=== PATIENT | male | born 1945 | race Caucasian/White ===

== ENCOUNTER 2020-12-06 15:56 | Emergency (ER) | payer OTHER ==
[2020-12-06] MEDS ORDERED: ACETAMINOPHEN 500 MG TAB ONE (16:35)
[2020-12-06 17:45] LABS: SARS-COV-2 RT PCR POSITIVE (NEGATIVE)
--- NOTE | 2020-12-06 18:29 | RAD REPORT ---
EXAM DESCRIPTION: Jennifer Single View12/06/2020 6:17 pm CLINICAL HISTORY: Fever COMPARISON: 2012 FINDINGS: The lungs appear clear of acute infiltrate. The heart is normal size Small curvilinear radiopaque density overlies lower left hemithorax unchanged from the prior exam
--- NOTE | 2020-12-06 18:41 | EDPHYS ---
Physician Documentation [facility] Name: David Patino Age: 75 yrs Sex: Male : 1945 Arrival Date: 12/06/2020 Time: 16:00 Bed 14 Private MD: ED Physician Makayla Salmeron HPI: 12/06 18:00 This 75 yrs old Male presents to ER via Ambulatory with complaints of Cough. pm1 18:00 The patient or guardian reports cough, with no sputum. Onset: The symptoms/episode pm1 began/occurred 2 day(s) ago. Severity of symptoms: in the emergency department the symptoms are unchanged. Modifying factors: The symptoms are alleviated by nothing, the symptoms are aggravated by nothing. Associated signs and symptoms: Pertinent positives: fever, rhinorrhea, Pertinent negatives: chest pain, Shortness of breath. The patient has not experienced similar symptoms in the past. The patient has not recently seen a physician. Patient with exposure to coworker in his car who had a cough and later informed him he was positive for Covid. Historical: - Allergies: 16:07 PENICILLINS; ss 16:07 Sulfa (Sulfonamide Antibiotics); ss - Home Meds: 16:07 atorvastatin oral [Active]; omeprazole 20 mg Oral cpDR 1 cap once daily [Active]; ss lisinopril 20 mg Oral tab 1 tab once daily [Active]; amlodipine 2.5 mg tab 1 tab once daily [Active]; aspirin 81 mg Oral TbEC 1 tab once daily [Active]; - PMHx: 16:07 Hypertensive disorder; ss 16:10 colon CA; kidney stones; ss - PSHx: 16:10 Cholecystectomy; Colectomy; ss - Immunization history:: Client reports having NOT received the Covid vaccine. - Social history:: Smoking status: Patient denies any tobacco usage or history of. ROS: 18:00 ENT: Negative for injury, pain, and discharge, Cardiovascular: Negative for chest pain, pm1 palpitations, and edema. 18:00 Abdomen/GI: Negative for abdominal pain, nausea, vomiting, diarrhea, and constipation, Back: Negative for injury and pain, MS/Extremity: Negative for injury and deformity, Skin: Negative for injury, rash, and discoloration. 18:00 Neuro: Negative for headache, weakness, numbness, tingling, and seizure. 18:00 Constitutional: Positive for fever, Negative for poor PO intake. 18:00 Respiratory: Positive for cough, Negative for shortness of breath, sputum production. Exam: 18:00 Constitutional: This is a well developed, well nourished patient who is awake, alert, pm1 and in no acute distress. Head/Face: Normocephalic, atraumatic. 18:00 Skin: Warm, dry with normal turgor. Normal color with no rashes, no lesions, and no evidence of cellulitis. MS/ Extremity: Pulses equal, no cyanosis. Neurovascular intact. Full, normal range of motion. 18:00 Cardiovascular: Exam negative for acute changes, Rate: normal, Rhythm: regular, Pulses: no pulse deficits are appreciated, Heart sounds: normal, normal S1and S2. 18:00 Respiratory: Exam negative for acute changes, respiratory distress, shortness of breath, Breath sounds: are clear throughout. 18:00 Neuro: Exam negative for acute changes, Orientation: is normal, Mentation: is normal, Motor: is normal, moves all fours. Vital Signs: 16:06 BP 119 / 80; Pulse 69; Resp 16; Temp 102.6(O); Pulse Ox 98% on R/A; Weight 88.9 kg; ss Height 5 ft. 9 in. (175.26 cm); Pain 0/10; 17:40 Temp 99.3(O); ss 17:45 BP 123 / 74; Pulse 60; Resp 16; Temp 99.6(O); Pulse Ox 97% on R/A; vg1 18:45 BP 166 / 67; Pulse 62; Resp 16; Pulse Ox 98% on R/A; vg1 16:06 Body Mass Index 28.94 (88.90 kg, 175.26 cm) ss MDM: 18:00 Patient medically screened. pm1 18:39 Data reviewed: vital signs. Data interpreted: Pulse oximetry: on room air is 97 %. pm1 Interpretation: normal. Counseling: I had a detailed discussion with the patient and/or guardian regarding: the historical points, exam findings, and any diagnostic results supporting the discharge/admit diagnosis, lab results, radiology results, the need for outpatient follow up, to return to the emergency department if symptoms worsen or persist or if there are any questions or concerns that arise at home, Need for self quarantine. 12/06 16:10 Order name: XRAY Chest (1 view); Complete Time: 18:37 ss 12/06 17:45 Order name: COVID-19/FLU A+B; Complete Time: 17:47 EDMS 12/06 17:48 Order name: Droplet/Contact Precautions; Complete Time: 17:54 pm1 Administered Medications: 16:16 Drug: Tylenol 1000 mg Route: PO; ss 17:54 Follow up: Response: Temperature is decreased vg1 Disposition Summary: 12/06/20 18:40 Discharge Ordered Location: Home pm1 Problem: new pm1 Symptoms: have improved pm1 Condition: Stable pm1 Diagnosis - Coronavirus infection, unspecified pm1 Followup: pm1 - With: Emergency Department - When: As needed - Reason: Worsening of condition Followup: pm1 - With: Private Physician - When: 2 - 3 days - Reason: Recheck today's complaints, Continuance of care, Re-evaluation by your physician Discharge Instructions: - Discharge Summary Sheet pm1 - COVID-19 pm1 Forms: - Medication Reconciliation Form pm1 - Thank You Letter pm1 - Antibiotic Education pm1 - Prescription Opioid Use pm1 Addendum: 12/07/2020 20:36 Co-signature as Attending Physician, Makayla Salmeron MD. m a2 Signatures: Dispatcher [employer] EDJinny Grant RN RN ss Yuri Becerra, CLOUD AUTOMATION TESTER CLOUD AUTOMATION TESTER pm1 Makayla Salmeron MD MD ma2 Nedra Alvarado RN vg1 Corrections: (The following items were deleted from the chart) 12/06 16:35 16:10 CORONAVIRUS+MR.LAB.BRZ ordered. EDMS EDMS 16:56 16:10 Influenza Screen (A \T\ B)+BA.LAB.BRZ ordered. EDMS EDMS
--- NOTE | 2020-12-06 18:41 | ER ---
Nurse's Notes [facility] Name: David Patino Age: 75 yrs Sex: Male : 1945 Arrival Date: 12/06/2020 Time: 16:00 Bed 14 Private MD: Diagnosis: Coronavirus infection, unspecified Presentation: 12/06 16:06 Chief complaint: Patient states: fever and cough that began 2 days ago. TMAX 102.7. Pt ss reports an exposure to covid. Coronavirus screen: Client presents with at least one sign or symptom that may indicate coronavirus-19. Standard/surgical mask placed on the client. Provider contacted for isolation considerations. Ebola Screen: Patient denies exposure to infectious person. Patient denies travel to an Ebola-affected area in the 21 days before illness onset. Initial Sepsis Screen: Does the patient meet any 2 criteria? No. Patient's initial sepsis screen is negative. Does the patient have a suspected source of infection? No. Patient's initial sepsis screen is negative. Risk Assessment: Do you want to hurt yourself or someone else? Patient reports no desire to harm self or others. Onset of symptoms was December 05, 2020. 16:06 Method Of Arrival: Ambulatory ss 16:06 Acuity: ROBINSON 3 ss Historical: - Allergies: 16:07 PENICILLINS; ss 16:07 Sulfa (Sulfonamide Antibiotics); ss - Home Meds: 16:07 atorvastatin oral [Active]; omeprazole 20 mg Oral cpDR 1 cap once daily [Active]; ss lisinopril 20 mg Oral tab 1 tab once daily [Active]; amlodipine 2.5 mg tab 1 tab once daily [Active]; aspirin 81 mg Oral TbEC 1 tab once daily [Active]; - PMHx: 16:07 Hypertensive disorder; ss 16:10 colon CA; kidney stones; ss - PSHx: 16:10 Cholecystectomy; Colectomy; ss - Immunization history:: Client reports having NOT received the Covid vaccine. - Social history:: Smoking status: Patient denies any tobacco usage or history of. Screenin:56 Abuse screen: Denies threats or abuse. Nutritional screening: No deficits noted. vg1 Tuberculosis screening: No symptoms or risk factors identified. Fall Risk No fall in past 12 months (0 pts). No secondary diagnosis (0 pts). No IV (0 pts). Ambulatory Aid- None/Bed Rest/Nurse Assist (0 pts). Gait- Normal/Bed Rest/Wheelchair (0 pts) Mental Status- Oriented to own ability (0 pts). Total Walton Fall Scale indicates No Risk (0-24 pts). Assessment: 17:45 General: Appears in no apparent distress. comfortable, Behavior is calm, cooperative. vg1 Pain: Denies pain. Neuro: Level of Consciousness is awake, alert, obeys commands, Oriented to person, place, time, situation. Cardiovascular: Patient's skin is warm and dry. Respiratory: Reports cough that is Airway is patent Respiratory effort is even, unlabored, Breath sounds are clear bilaterally. Denies shortness of breath. GI: No signs and/or symptoms were reported involving the gastrointestinal system. : No signs and/or symptoms were reported regarding the genitourinary system. EENT: No signs and/or symptoms were reported regarding the EENT system. Derm: Skin is intact, is healthy with good turgor. Musculoskeletal: Circulation, motion, and sensation intact. Vital Signs: 16:06 BP 119 / 80; Pulse 69; Resp 16; Temp 102.6(O); Pulse Ox 98% on R/A; Weight 88.9 kg; ss Height 5 ft. 9 in. (175.26 cm); Pain 0/10; 17:40 Temp 99.3(O); ss 17:45 BP 123 / 74; Pulse 60; Resp 16; Temp 99.6(O); Pulse Ox 97% on R/A; vg1 18:45 BP 166 / 67; Pulse 62; Resp 16; Pulse Ox 98% on R/A; vg1 16:06 Body Mass Index 28.94 (88.90 kg, 175.26 cm) ED Course: 16:00 Patient arrived in ED. ds1 16:07 Triage completed. ss 16:07 Arm band placed on right wrist. ss 17:47 Yuri Becerra NP is PHCP. pm1 17:47 Makayla Salmeron MD is Attending Physician. pm1 17:53 Nedra Alvarado, RN is Primary Nurse. vg1 17:57 Patient has correct armband on for positive identification. Bed in low position. Call vg1 light in reach. Side rails up X 1. 18:18 XRAY Chest (1 view) In Process Unspecified. EDMS 18:56 No provider procedures requiring assistance completed. Patient did not have IV access vg1 during this emergency room visit. Administered Medications: 16:16 Drug: Tylenol 1000 mg Route: PO; ss 17:54 Follow up: Response: Temperature is decreased vg1 Outcome: 18:40 Discharge ordered by MD. pm1 18:55 Discharged to home ambulatory. vg1 18:55 Condition: stable 18:55 Discharge instructions given to patient, Instructed on discharge instructions, follow up and referral plans. Demonstrated understanding of instructions, follow-up care. 18:56 Patient left the ED. vg1 Signatures: Dispatcher [employer] EDPA Annette Nieto ds1 Jinny Billy, YULIANA RN Yuri Kraus, SREEKANTH FIBER WORKER pm1 Nedra Alvarado, YULIANA RN vg1
[2020-12-06 19:05] VITALS: TEMP 99.6
[2020-12-06 19:07] VITALS: BP 166/67; O2SAT 98
== END 2020-12-06 18:56 | disposition home or self-care (01) ==
LOC: ER 15:56
DX: U07.1 COVID-19 (principal); I10 Essential (primary) hypertension; Z79.82 Long term (current) use of aspirin; Z88.0 Allergy status to penicillin; Z88.2 Allergy status to sulfonamides
CPT/HCPCS: 0240U; 71045; 99283

== ENCOUNTER 2020-12-15 08:44 | Inpatient (IN) | payer OTHER ==
[2020-12-15 10:06] LABS: Absolute Lymphocytes (CBC) 0.7 K/uL (0.7-4.9); Basophils % 0.2 % (0-1.3); Lymphocytes % 12.2 % (15.3-44.8); MPV 7.7 fL (7.6-11.3); RBC Red Blood Cell Count 4.12 M/uL (4.33-5.43)
[2020-12-15 10:07] LABS: Protime INR 1.22
[2020-12-15] MEDS ORDERED: NA CHLORIDE 0.9% 1,000 ML ONE (10:13)
--- NOTE | 2020-12-15 10:13 | EDPHYS ---
Physician Documentation [facility] Name: David Patino Age: 75 yrs Sex: Male : 1945 Arrival Date: 12/15/2020 Time: 08:52 Bed 24 Private MD: STACEY Physician David Gomez HPI: 12/15 09:54 This 75 yrs old Male presents to ER via Ambulatory with complaints of santos Shortness Of Breath, COVID+. 09:54 The patient has shortness of breath at rest, with light activity. Onset: The santos symptoms/episode began/occurred 11 day(s) ago. Duration: The symptoms are continuous, and are steadily getting worse. The patient's shortness of breath is aggravated by coughing. Associated signs and symptoms: The patient has no apparent associated signs or symptoms. Severity of symptoms: At their worst the symptoms were mild in the emergency department the symptoms. The patient has not experienced similar symptoms in the past. 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 Flu vaccine is not up to date. - Social history:: Smoking status: Patient denies any tobacco usage or history of. ROS: 09:56 Constitutional: Negative for fever, chills, and weight loss, Eyes: Negative for injury, santos pain, redness, and discharge, ENT: Negative for injury, pain, and discharge, Neck: Negative for injury, pain, and swelling, Cardiovascular: Negative for chest pain, palpitations, and edema, Abdomen/GI: Negative for abdominal pain, nausea, vomiting, diarrhea, and constipation, Back: Negative for injury and pain, : Negative for injury, bleeding, discharge, and swelling, MS/Extremity: Negative for injury and deformity, Skin: Negative for injury, rash, and discoloration, Neuro: Negative for headache, weakness, numbness, tingling, and seizure, Psych: Negative for depression, anxiety, suicide ideation, homicidal ideation, and hallucinations, Allergy/Immunology: Negative for hives, rash, and allergies, Endocrine: Negative for neck swelling, polydipsia, polyuria, polyphagia, and marked weight changes, Hematologic/Lymphatic: Negative for swollen nodes, abnormal bleeding, and unusual bruising. 09:56 Respiratory: Positive for cough, shortness of breath, at rest. Exam: 09:56 Constitutional: This is a well developed, well nourished patient who is awake, alert, santos and in no acute distress. Head/Face: Normocephalic, atraumatic. Eyes: Pupils equal round and reactive to light, extra-ocular motions intact. Lids and lashes normal. Conjunctiva and sclera are non-icteric and not injected. Cornea within normal limits. Periorbital areas with no swelling, redness, or edema. ENT: Nares patent. No nasal discharge, no septal abnormalities noted. Tympanic membranes are normal and external auditory canals are clear. Oropharynx with no redness, swelling, or masses, exudates, or evidence of obstruction, uvula midline. Mucous membranes moist. Neck: Trachea midline, no thyromegaly or masses palpated, and no cervical lymphadenopathy. Supple, full range of motion without nuchal rigidity, or vertebral point tenderness. No Meningismus. Chest/axilla: Normal chest wall appearance and motion. Nontender with no deformity. No lesions are appreciated. Cardiovascular: Regular rate and rhythm with a normal S1 and S2. No gallops, murmurs, or rubs. Normal PMI, no JVD. No pulse deficits. Abdomen/GI: Soft, non-tender, with normal bowel sounds. No distension or tympany. No guarding or rebound. No evidence of tenderness throughout. Back: No spinal tenderness. No costovertebral tenderness. Full range of motion. Skin: Warm, dry with normal turgor. Normal color with no rashes, no lesions, and no evidence of cellulitis. MS/ Extremity: Pulses equal, no cyanosis. Neurovascular intact. Full, normal range of motion. Neuro: Awake and alert, GCS 15, oriented to person, place, time, and situation. Cranial nerves II-XII grossly intact. Motor strength 5/5 in all extremities. Sensory grossly intact. Cerebellar exam normal. Normal gait. Psych: Awake, alert, with orientation to person, place and time. Behavior, mood, and affect are within normal limits. 09:56 ECG was reviewed by the Attending Physician. 09:56 Respiratory: the patient does not display signs of respiratory distress, Respirations: labored breathing, that is mild, Breath sounds: bronchial sounds, that are mild, are scattered, decreased breath sounds, that are mild, are scattered, rhonchi, that are mild, are scattered, stridor, is not appreciated, Respiratory rate: 24 Vital Signs: 08:56 BP 124 / 66; Pulse 61; Resp 24; Temp 97.6; Pulse Ox 90% on R/A; Weight 85.28 kg; Height ll1 5 ft. 9 in. (175.26 cm); Pain 0/10; 08:56 Body Mass Index 27.76 (85.28 kg, 175.26 cm) ll1 MDM: 09:23 Patient medically screened. [facility] 09:59 Differential diagnosis: asthma, Bronchitis. Antibiotic administration: Zithromax is santos given. The patient's Wells Deep Vein Thrombosis Score was calculated as follows: Total Score: 0-2 Pts- Low Risk. The patient's pulmonary embolism risk score was calculated as follows: Total Score: 0-2 points. This patient was found to be at low risk for a pulmonary embolism by using the Well's assessment criteria. Immunization status: Pneumococcal vaccine: Influenza vaccine: Data reviewed: vital signs, nurses notes, lab test result(s), EKG, radiologic studies, plain films. Data interpreted: pvc monitor: rate is 61 beats/min, rhythm is regular, Pulse oximetry: on room air is 90 %. Test interpretation: by ED physician or midlevel provider: ECG, plain radiologic studies. Counseling: I had a detailed discussion with the patient and/or guardian regarding: the historical points, exam findings, and any diagnostic results supporting the discharge/admit diagnosis, lab results, radiology results, the need for further work-up and treatment in the hospital. 12/15 09:24 Order name: Basic Metabolic Panel; Complete Time: 11:12 [facility] 12/15 09:24 Order name: CBC with Diff; Complete Time: 11:12 santos 12/15 09:24 Order name: LFT's; Complete Time: 11:12 santos 12/15 09:24 Order name: Magnesium; Complete Time: 11:12 santos 12/15 09:24 Order name: NT PRO-BNP; Complete Time: 11:12 [facility] 12/15 09:24 Order name: PT-INR; Complete Time: 11:12 [facility] 12/15 09:24 Order name: Troponin (emerg Dept Use Only); Complete Time: 11:12 [facility] 12/15 09:24 Order name: Ferritin; Complete Time: 11:12 [facility] 12/15 09:24 Order name: CRP; Complete Time: 11:12 [facility] 12/15 15:01 Order name: Troponin I EDMS 12/15 18:09 Order name: Troponin I EDMS 12/16 02:44 Order name: CBC with Automated Diff EDMS 12/16 02:53 Order name: Basic Metabolic Panel EDMS 12/16 02:53 Order name: NT PRO-BNP EDMS 12/15 09:24 Order name: XRAY Chest (1 view); Complete Time: 11:12 [facility] 12/15 09:24 Order name: EKG; Complete Time: 09:25 [facility] 12/15 09:24 Order name: Cardiac monitoring; Complete Time: 09:57 [facility] 12/15 10:07 Order name: CONS Physician Consult EDMS 12/17 05:51 Order name: CBC with Automated Diff EDMS 12/17 06:03 Order name: Comprehensive Metabolic Panel EDMS 12/17 06:03 Order name: C-Reactive Protein EDMS 12/17 06:03 Order name: Magnesium EDMS 12/17 07:40 Order name: RAD EDMS 12/17 08:53 Order name: Manual Differential EDMS 12/15 09:24 Order name: EKG - Nurse/Tech; Complete Time: 09:57 [facility] 12/15 09:24 Order name: IV Saline Lock; Complete Time: 09:57 [facility] 12/15 09:24 Order name: Labs collected and sent; Complete Time: 09:57 [facility] 12/15 09:24 Order name: O2 Per Protocol; Complete Time: 09:57 [facility] 12/15 09:24 Order name: O2 Sat Monitoring; Complete Time: 09:57 [facility] EC:56 Rate is 59 beats/min. Rhythm is regular. QRS [place] is Normal. IN interval is normal. QRS santos interval is normal. QT interval is normal. No Q waves. T waves are Normal. No ST changes noted. Clinical impression: Sinus bradycardia and No evidence of ischemia. Interpreted by me. Reviewed by me. Administered Medications: 09:56 Drug: NS 0.9% 1000 ml Route: IV; Rate: 75 ml/hr; Site: right antecubital; sv 13:33 Follow up: IV Status: Infusion continued upon admission sv 10:20 Drug: Pepcid (famotidine) 20 mg Route: IVP; Site: right antecubital; sv 11:00 Follow up: Response: No adverse reaction sv 10:20 Drug: Zithromax (azithromycin) 500 mg Route: IVPB; Infused Over: 1 hrs; Site: right sv antecubital; 11:20 Follow up: Response: No adverse reaction; IV Status: Completed infusion; IV Intake: sv 250ml 10:20 Drug: SOLU-Medrol (methylPrednisoLONE) 125 mg Route: IVP; Site: right antecubital; sv 11:00 Follow up: Response: No adverse reaction sv 10:20 Drug: Aspirin 81 mg Route: PO; sv 11:00 Follow up: Response: No adverse reaction sv 10:20 Drug: Lovenox (enoxaparin) 40 mg Route: Sub-Q; Site: right lower abdomen; sv 11:00 Follow up: Response: No adverse reaction sv Disposition Summary: 12/15/20 10:13 Hospitalization Ordered Hospitalization Status: Inpatient Admission santos Provider: Shmuel Martinez cha Condition: Fair santos Problem: new santos Symptoms: have improved santos Bed/Room Type: Standard santos Location: [facility] ER HOLD(12/17/20 11:05) aa5 Room Assignment: ERHOLD-(12/17/20 11:05) aa5 Diagnosis - Coronavirus infection, unspecified santos - Pneumonia due to SARS-associated coronavirus santos - Hypoxemia santos - Weakness santos Forms: - Medication Reconciliation Form santos - SBAR form santos Signatures: Dispatcher [employer] Meche Munguia RN RN sv Woody, Diana RN David Vidales MD MD cha Calderon, Audri RN RN aa5 Jennifer Lerner RN RN hb Lewis, Lynsay RN RN ll1 Corrections: (The following items were deleted from the chart) 11:33 10:13 Telemetry/MedSurg (Inpatient) santos 11:33 10:13 santos 12/17 10:41 09 11:33 [facility] ER HOLD [facility] 12/17 10:41 12/15 11:33 ERHOLD- [facility] 12/17 11:05 10:41 Telemetry/MedSurg (Inpatient) [facility] 11:05 10:41 430 dw aa5
--- NOTE | 2020-12-15 10:13 | ER ---
Nurse's Notes [facility] Name: David Patino Age: 75 yrs Sex: Male : 1945 Arrival Date: 12/15/2020 Time: 08:52 Bed 24 Private MD: Diagnosis: Coronavirus infection, unspecified;Pneumonia due to SARS-associated coronavirus;Hypoxemia;Weakness Presentation: 12/15 08:56 Chief complaint: Patient states: SOB and weakness getting worse since getting his ll1 Regeron infusion Monday. Started getting sick 12/05/20. + SOB. Dr. Martinez PCP. Coronavirus screen: Vaccine status: Patient reports being unvaccinated. Client denies travel out of the [place] in the last 14 days. congestion, cough unrelated to allergies, diarrhea, difficulty breathing, fatigue, fever, headache, shortness of breath, loss of taste or smell, Client presents with at least one sign or symptom that may indicate coronavirus-19. Standard/surgical mask placed on the client. Ebola Screen: Patient denies travel to an Ebola-affected area in the 21 days before illness onset. Initial Sepsis Screen: Does the patient meet any 2 criteria? RR > 20 per min. No. Patient's initial sepsis screen is negative. Does the patient have a suspected source of infection? Yes: Productive cough/pneumonia. Risk Assessment: Do you want to hurt yourself or someone else? Patient reports no desire to harm self or others. Onset of symptoms was December 05, 2020. 08:56 Method Of Arrival: Ambulatory ll1 08:56 Acuity: ROBINSON 2 ll1 Historical: - Allergies: 09:00 PENICILLINS; ll1 09:00 Sulfa (Sulfonamide Antibiotics); ll1 - PMHx: 09:00 COLON CA; Hypertensive disorder; Kidney stones; ll1 - PSHx: 09:00 Cholecystectomy; Colectomy; tumor reoved from back; knee SX; ll1 - Immunization history:: Client reports having NOT received the Covid vaccine. Flu vaccine is not up to date. - Social history:: Smoking status: Patient denies any tobacco usage or history of. Screenin:45 Abuse screen: Denies threats or abuse. Denies injuries from another. Nutritional sv screening: No deficits noted. Tuberculosis screening: No symptoms or risk factors identified. Fall Risk None identified. Assessment: 09:45 General: Appears in no apparent distress. uncomfortable, well developed, Behavior is sv calm, cooperative, appropriate for age. General: Reports feeling ill for > 3 days, fatigue for >3 days. Pain: Denies pain. Neuro: Level of Consciousness is awake, alert, obeys commands, Oriented to person, place, time, situation, Moves all extremities. Full function Gait is steady, Speech is normal. Cardiovascular: Patient's skin is warm and dry. Pulses are palpable in right radial artery and left radial artery Rhythm is sinus rhythm. Respiratory: Airway is patent Respiratory effort is even, unlabored, Respiratory pattern is regular, symmetrical. Respiratory: Reports shortness of breath on exertion. Derm: Skin is intact, Skin is pink, warm \T\ dry. 10:20 Reassessment: Patient appears in no apparent distress at this time. No changes from sv previously documented assessment. Patient and/or family updated on plan of care and expected duration. Pain level reassessed. Patient is alert, oriented x 3, equal unlabored respirations, skin warm/dry/pink. 11:30 Reassessment: Patient appears in no apparent distress at this time. Patient and/or sv family updated on plan of care and expected duration. Pain level reassessed. Patient is alert, oriented x 3, equal unlabored respirations, skin warm/dry/pink. Vital Signs: 08:56 BP 124 / 66; Pulse 61; Resp 24; Temp 97.6; Pulse Ox 90% on R/A; Weight 85.28 kg; Height ll1 5 ft. 9 in. (175.26 cm); Pain 0/10; 08:56 Body Mass Index 27.76 (85.28 kg, 175.26 cm) ll1 ED Course: 08:52 Patient arrived in ED. ss 09:00 Triage completed. ll1 09:00 Arm band placed on. ll1 09:23 David Gomez MD is Attending Physician. [facility] 09:45 Patient has correct armband on for positive identification. Placed in gown. Bed in low sv position. Call light in reach. Side rails up X 1. court monitor on. Pulse ox on. NIBP on. Door closed. Warm blanket given. Head of bed elevated. 09:45 Inserted saline lock: 20 gauge in right antecubital area, using aseptic technique. sv ,using aseptic technique. done by [facility] Blood collected. 09:47 Meche Woody, RN is Primary Nurse. sv 10:11 Shmuel Martinez MD is Hospitalizing Provider. santos 10:20 XRAY Chest (1 view) In Process Unspecified. EDMS 11:33 Patient admitted, IV remains in place. hb 11:33 No provider procedures requiring assistance completed. sv 19:06 Primary Nurse role handed off by Meche Woody RN sv 12/17 09:56 Candice Browne RN is Primary Nurse. ap3 Administered Medications: 12/15 09:56 Drug: NS 0.9% 1000 ml Route: IV; Rate: 75 ml/hr; Site: right antecubital; sv 13:33 Follow up: IV Status: Infusion continued upon admission sv 10:20 Drug: Pepcid (famotidine) 20 mg Route: IVP; Site: right antecubital; sv 11:00 Follow up: Response: No adverse reaction sv 10:20 Drug: Zithromax (azithromycin) 500 mg Route: IVPB; Infused Over: 1 hrs; Site: right sv antecubital; 11:20 Follow up: Response: No adverse reaction; IV Status: Completed infusion; IV Intake: sv 250ml 10:20 Drug: SOLU-Medrol (methylPrednisoLONE) 125 mg Route: IVP; Site: right antecubital; sv 11:00 Follow up: Response: No adverse reaction sv 10:20 Drug: Aspirin 81 mg Route: PO; sv 11:00 Follow up: Response: No adverse reaction sv 10:20 Drug: Lovenox (enoxaparin) 40 mg Route: Sub-Q; Site: right lower abdomen; sv 11:00 Follow up: Response: No adverse reaction sv Intake: 11:20 IV: 250ml; Total: 250ml. sv Outcome: 10:13 Decision to Hospitalize by Provider. santos 11:33 Admitted to ER Hold. Please see [facility] for further documentation. hb 11:33 Condition: stable 11:33 Instructed on the need for admit, Demonstrated understanding of instructions. 12/17 13:52 Patient left the ED. ap3 Signatures: Dispatcher [employer] EDMS Meche Woody RN RN David Gomez MD MD cha Smirch, Shelby, RN RN Jennifer Lerner RN RN hb Prokisch Candice, RN RN ap3 Ruth Saavedra, RN RN ll1
--- NOTE | 2020-12-15 10:31 | RAD REPORT ---
EXAM DESCRIPTION: RAD - Chest Single View - 12/15/2020 10:20 am CLINICAL HISTORY: Cough;Dyspnea COMPARISON: Chest Single View dated 12/06/2020; CHEST PA AND LAT 2 VIEW dated 11/02/2012; ABDOMEN 1 EW KUB dated 11/02/2012 FINDINGS: Lines: None. Lungs: Scattered irregular airspace opacities with decreased lung volumes. Pleural: No significant pleural effusions or pneumothorax. Cardiac: The heart size is within normal limits. Bones: No acute fractures. Other: IMPRESSION: Increasing patchy airspace disease bilaterally concerning for multifocal pneumonia, incl uding Covid-19.
[2020-12-15] MEDS ORDERED: METHYLPREDNISOLONE 125 MG INJ ONE (10:32)
[2020-12-15] MEDS ORDERED: ASPIRIN 81 MG CHEWABLE TABLET ONE (10:32)
[2020-12-15] MEDS ORDERED: FAMOTIDINE 20 MG/2 ML VIAL IV ONE ×2 (10:33→21:56)
[2020-12-15] MEDS ORDERED: NA CHLORIDE 0.9% 250 ML ONE (10:33)
[2020-12-15] MEDS ORDERED: AZITHROMYCIN 500 MG INJ IVPB ONE (10:33)
[2020-12-15] MEDS ORDERED: ENOXAPARIN 40 MG/0.4 ML SQ ONE (10:33)
[2020-12-15 11:07] LABS: ALT/SGPT 65 U/L (12-78); AST/SGOT 61 U/L (15-37); Alkaline Phosphatase 39 U/L (45-117); BUN Blood Urea Nitrogen 22 mg/dL (7-18); Bicarbonate 24 mmol/L (21-32); Bilirubin Direct 0.4 mg/dL (0-0.2); Bilirubin Total 1.1 mg/dL (0.2-1.0); Ferritin 2220.2 ng/mL (26-388); Glucose Level 108 mg/dL (74-106); Magnesium 1.9 mg/dL (1.8-2.4); NT PRO-BNP 113 pg/mL (<125); Potassium 3.5 mmol/L (3.5-5.1); Protein, Total 6.6 g/dL (6.4-8.2); Sodium Level 140 mmol/L (136-145); Troponin (Emerg Dept Use Only) < 0.02 ng/mL (0.0-0.045)
[2020-12-15] MEDS ORDERED: ALBUTEROL 2.5 MG/3 ML NEB SOL NEB PRN (11:39)
[2020-12-15] MEDS ORDERED: ACETAMINOPHEN 325 MG TABLET PO PRN (11:39)
[2020-12-15] MEDS ORDERED: IPRATROPIUM BROM 0.5MG/2.5ML NEB PRN (11:39)
[2020-12-15] MEDS ORDERED: ONDANSETRON 4 MG/2 ML VIAL IV PRN (11:39)
[2020-12-15 11:41] VITALS: BMI 27.6
[2020-12-15] MEDS: METHYLPREDNISOLONE 40 MG INJ IV SCH (17:00)
[2020-12-15] MEDS ORDERED: METHYLPREDNISOLONE 40 MG INJ ONE (18:26)
[2020-12-15] MEDS: FAMOTIDINE 20 MG/2 ML VIAL IV SCH (21:00)
[2020-12-15] MEDS ORDERED: PANTOPRAZOLE 40 MG INJ ONE (21:42)
[2020-12-16] MEDS: METHYLPREDNISOLONE 40 MG INJ IV SCH ×3 (01:00→17:00)
[2020-12-16] MEDS ORDERED: METHYLPREDNISOLONE 125 MG INJ ONE ×3 (01:41→16:23)
--- NOTE | 2020-12-16 02:11 | HP ---
Date of Admission: 12/15/2020 Chief Complaint: Cough, fever, shortness of breath. History Of Present Illness: Mr. Patino is a 75-year-old pleasant male patient who has decided not to get COVID-19 vaccine, unfortunately ended up having COVID-19 infection. Patient was evaluated on ou tpatient basis with tele visit 2 different times recently related to this COVID-19 infection, and aft er I saw him first time, he was prescribed, ivermectin, azithromycin, and prednisone, and when I eval uated him, second time, he was feeling much better. His initial evaluation was on 12/07/2020 and sub sequent evaluation was on 12/10/2020. His COVID-19 test was positive as per test done on 12/06/2020. Patient reported that since Monday of past week, his symptoms of cough, fever, and shortness of kathy ath has been increasingly getting worse. His lowest oxygen saturation at home has been around 85% an d highest was 87% to 88% in last few days, so he came into emergency room with worsening symptoms. A fter he was evaluated, he was admitted to the hospital with COVID-19 pneumonia. [facility]. Allergies: PENICILLIN, CAUSING HIVES. SULFA, CAUSING RASH. Medications: Amlodipine 5 mg daily, aspirin 81 mg daily, atorvastatin 20 mg daily at bedtime, lisino pril 20 mg daily, omeprazole 20 mg daily, and latanoprost drops. Review of Systems: Constitutional: As mentioned above. Respiratory: As mentioned above. All other systems reviewed and negative. Past Medical History: Significant for glaucoma, hypertension, mixed hyperlipidemia, gastroesophageal reflux disease, diverticulosis, colon cancer, benign prostatic hypertrophy. Past Surgical History: Hernia repair, cholecystectomy, partial resection of colon due to colon cance r in 1996, back surgery shoulder surgery. Family History: Father had lung cancer and diabetes. Mother had lung cancer. Social History: Negative for smoking. Use of alcohol: Patient drinks 1 or 2 beers a day. Physical Examination: Vital Signs: Respiratory rate 19, blood pressure 129/75, oxygen saturation 96% on 3 L nasal cannula oxygen, pulse rate 68, height 5 feet 9 inches, weight 187 pounds. General: Awake, alert, oriented, not in distress. HEENT: Head atraumatic, normocephalic. Conjunctivae nonerythematous. Sclerae white. Mouth, no thr ush or edema noted. Ears/Nose, no mass, lesion, discharge noted. Neck: Supple. No JVD, lymph nodes, bruit, thyromegaly noted. Lungs: Bilateral good equal air entry. Clear to auscultation. No rhonchi. No rales. Heart: Normal heart sounds, no murmur or gallop. Abdomen: Soft, bowel sounds normal. No guarding, rigidity, tenderness, mass, hepatosplenomegaly, dis tention, or bruit noted. Extremities: No leg edema. No calf tenderness. Skin: No rash, ulcer, cellulitis. Lymphatics: No lymph node enlargement in neck, supraclavicular, infraclavicular region. Neuro: No focal neurological deficit. Chest: Unremarkable. External Genitalia: Deferred. Rectal: Deferred. Laboratory Data: White count 6.1, hemoglobin 13.5 platelets 146. INR 1.22. Sodium 140, potassium 3 .5, chloride 109, bicarb 24, BUN 22, creatinine 1, glucose 108. Ferritin 2220. Total bilirubin 1.1, direct bilirubin 0.4, AST 61, ALT 65, alkaline phosphatase 39. Troponin less than 0.02 x 3. CRP 63 .10. His chest x-ray shows increasing patchy airspace disease bilaterally. Impression: 1.Coronavirus disease 2019 infection. 2.Coronavirus disease 2019 pneumonia. 3.Acute respiratory failure with hypoxia. 4.Anemia, unspecified. 5.Hypertension. 6.Mixed hyperlipidemia. 7.Colon cancer. 8.Gastroesophageal reflux disease. 9.Diverticulosis. Plan: We will admit patient to hospital for further evaluation and management of this problem. [facility] ent is appropriate for inpatient and is expected to spend 2 midnights in hospital. Home medications will be continued per order. We will go ahead and consult Dr. Smalls from pulmonary service and I will see him tomorrow morning for followup. We will go ahead and give him azithromycin, Lovenox, IV steroid, and oxygen replacement therapy. I will see him tomorrow morning for followup. Details and plan of treatment discussed with him. FILIPE/MODL Voice ID: [id number]
[2020-12-16 02:40] LABS: Absolute Lymphocytes (CBC) 0.5 K/uL (0.7-4.9); Basophils % 0.2 % (0-1.3); Hematocrit 36.5 % (39.6-49.0); Lymphocytes % 13.8 % (15.3-44.8); MPV 7.6 fL (7.6-11.3); RBC Red Blood Cell Count 3.89 M/uL (4.33-5.43)
[2020-12-16] MEDS ORDERED: AZITHROMYCIN 500 MG INJ IVPB ONE (07:45)
[2020-12-16] MEDS ORDERED: FAMOTIDINE 20 MG TAB ONE ×2 (07:45→21:10)
[2020-12-16] MEDS ORDERED: APIXABAN 5 MG TABLET ONE ×2 (07:45→21:09)
[2020-12-16] MEDS ORDERED: NA CHLORIDE 0.9% 250 ML ONE (07:46)
[2020-12-16] MEDS: FAMOTIDINE 20 MG/2 ML VIAL IV SCH ×2 (09:00→21:00)
[2020-12-16] MEDS: AZITHROMYCIN IV 250 MG in NA CHLORIDE 0.9% 250 ML IVPB SCH (09:00)
[2020-12-16] MEDS: APIXABAN 5 MG TABLET PO SCH ×2 (09:00→21:00)
[2020-12-16] MEDS ORDERED: ENOXAPARIN 40 MG/0.4 ML SQ SCH (09:00)
--- NOTE | 2020-12-16 11:30 | EKG ---
Test Date: 2020-12-15 Test Time: 09:42:51 Basket Machine Operator: LOREN MEASUREMENT RESULTS: Intervals: Rate: 59 WA: 142 QRSD: 82 QT: 428 QTc: 423 [place]: P: 26 WA: 142 QRS: 29 T: 44 INTERPRETIVE STATEMENTS: Sinus bradycardia Otherwise normal ECG Compared to ECG 11/02/2012 14:00:23 No significant changes Electronically Signed On 12-16-20 11:27:06 CDT by Ja Gramajo
[2020-12-16] MEDS: MONTELUKAST 10 MG TAB PO SCH (13:00)
--- NOTE | 2020-12-16 17:09 | P.CNS ---
Date of Consult: 12/16/20 Reason for Consult: COVID pneumonia Chief Complaint: SOb and weakness History of Present Illness: Age 75 admitted with COVId penumonia, Tx OP worsened AW resp failure now stable/ Doing well ambualting weak Allergies Penicillins Allergy (Verified 11/02/12 13:42) UNK Sulfa (Sulfonamide Antibiotics) Allergy (Verified 11/02/12 13:42) UNK Home Medications: Amlodipine [Norvasc] 5 mg PO DAILY 12/15/20 Ascorbic Acid [Vitamin C] 250 mg PO DAILY 12/15/20 Aspirin 81 mg PO DAILY 12/15/20 Atorvastatin Calcium 20 mg PO DAILY 12/15/20 B-Complex with Vitamin C [B-Complex with C] 0.5 each PO DAILY 12/15/20 Cholecalciferol (Vitamin D3) [Vitamin D3] 2,000 unit PO DAILY 12/15/20 Cyanocobalamin [Vitamin B-12] 1,000 mcg PO DAILY 12/15/20 Fish Oil/Dha/Epa [Fish Oil 1,200 mg Fish Oil] 1 each PO DAILY 12/15/20 L.acidoph,Paracasei, B.lactis [Probiotic] 1 each PO DAILY 12/15/20 Latanoprost/Pf [Latanoprost 0.005% Eye Drop] 7.5 ml OP DAILY 12/15/20 Lisinopril [Zestril] 20 mg PO DAILY 12/15/20 Magnesium Citrate 200 mg PO DAILY 12/15/20 Omeprazole 20 mg PO DAILY 12/15/20 Tumeric/Ging/[place]/Oreg/Capryl [Candicidal Capsule] 1 each PO DAILY 12/15/20 Zinc Gluconate [Zinc] 30 mg PO DAILY 12/15/20 - Past Medical/Surgical History -: Colon cancer -: HTN -: kidney stones -: Cholecystectomy -: Colectomy -: Tumor removed from back -: knee Review of Systems General: Weakness Respiratory: Shortness of Breath Physical Examination Temp Pulse Resp BP Pulse Ox 98 F 56 20 133/89 94 12/16/20 08:00 12/16/20 08:00 12/16/20 08:00 12/16/20 08:00 12/16/20 08:00 General: Alert, Oriented x3, Cooperative - Problems (1) Pneumonia due to COVID-19 virus Current Visit: Yes Status: Acute Plan: Age 75 Aw COVid penumonia/ las chem reviewed/ on 2 l of nc O2/Ct scanCOVId penumonia/ Ambualting/ Poss DChome am
[2020-12-16] MEDS ORDERED: METHYLPREDNISOLONE 40 MG INJ ONE (21:10)
--- NOTE | 2020-12-16 21:16 | PN ---
Date of Progress Note: 12/16/2020 Subjective: The patient was seen this morning for followup. No new complaints or problems reported by the patient. Remains on nasal cannula oxygen. Denies any nausea, vomiting. Objective: Vital Signs: Reviewed. HEENT: Unremarkable. Lungs: Clear to auscultation. Heart: Heart sounds normal. Abdomen: Soft. Bowel sounds normal. No guarding, rigidity, tenderness, or distention. Extremities: No leg edema. Laboratory Data: White count 3.4, hemoglobin 12.8. Sodium 143, potassium 4, chloride 112, bicarb 25, BUN 22, creatinine 0.87, glucose 177. Impression: 1. COVID-19 infection. 2. COVID-19 pneumonia. 3. Acute respiratory failure with hypoxia. Plan: We will go ahead and continue current medication. Continue oxygen replacement therapy. Continue antibiotics steroids. Follow up with Dr. Smalls. We will go ahead and continue current anticoagulation therapy. I will see him tomorrow for followup. FILIPE/MODL Voice ID: [id number] Report ID: [id number] SUMAYA
[2020-12-17] MEDS: METHYLPREDNISOLONE 40 MG INJ IV SCH ×2 (00:59→07:55)
[2020-12-17 05:45] LABS: Absolute Lymphocytes (CBC) 0.6 K/uL (0.7-4.9); Basophils % 0.1 % (0-1.3); Hematocrit 37.1 % (39.6-49.0); MPV 7.8 fL (7.6-11.3); RBC Red Blood Cell Count 3.94 M/uL (4.33-5.43)
[2020-12-17 06:03] LABS: Albumin 2.8 g/dL (3.4-5.0); Bilirubin Total 0.8 mg/dL (0.2-1.0); C-Reactive Protein 11.4 mg/L (<3.00); Magnesium 2.2 mg/dL (1.8-2.4); Protein, Total 6.2 g/dL (6.4-8.2)
--- NOTE | 2020-12-17 07:40 | RAD REPORT ---
EXAM DESCRIPTION: RAD - Chest Single View - 12/17/2020 6:43 am CLINICAL HISTORY: COVID COMPARISON: Portable December 15, portable December 06 TECHNIQUE: AP portable chest image was obtained 12/17/2020 6:43 am . FINDINGS: Interstitial and patchy alveolar opacities are again noted. Lungs are better aerated on th e current examination with an overall slight decrease in the extent of interstitial and alveolar opac ification. Trachea is in midline. Heart and vasculature are normal. No measurable pleural effusion and no pneumo thorax. IMPRESSION: Improved aeration of the lung parker compared to December 15 with slight decrease in the extent of interstitial and alveolar opacification.
[2020-12-17] MEDS: FAMOTIDINE 20 MG/2 ML VIAL IV SCH (07:55)
[2020-12-17] MEDS: APIXABAN 5 MG TABLET PO SCH (07:55)
[2020-12-17] MEDS: AZITHROMYCIN IV 250 MG in NA CHLORIDE 0.9% 250 ML IVPB SCH (07:55)
[2020-12-17] MEDS: MONTELUKAST 10 MG TAB PO SCH (07:55)
[2020-12-17] MEDS ORDERED: METHYLPREDNISOLONE 40 MG INJ ONE (07:58)
[2020-12-17] MEDS ORDERED: APIXABAN 5 MG TABLET ONE (07:58)
[2020-12-17] MEDS ORDERED: ATORVASTATIN 20 MG TAB ONE (07:58)
[2020-12-17] MEDS ORDERED: FAMOTIDINE 20 MG TAB ONE (07:59)
[2020-12-17 08:07] VITALS: O2SAT 93
[2020-12-17 08:53] LABS: Blood Morphology Comment NOT SEEN (NOT SEEN); Platelet Estimate ADEQ
[2020-12-17] MEDS ORDERED: HOME MED 1 EA UNK (Latanoprost/Pf [Latanoprost 0.005% Eye Drop] 7.5 ML Drops) OP SCH (09:00)
[2020-12-17] MEDS ORDERED: ATORVASTATIN 20 MG TAB PO SCH (09:00)
[2020-12-17 11:34] VITALS: BP 137/71; TEMP 97.6
--- NOTE | 2020-12-18 06:04 | DS ---
Date of Discharge: 12/17/2020 Disposition: Discharged to go home. Physical Examination: HEENT: Unremarkable. Lungs: Clear to auscultation. Heart: Sounds normal. Abdomen: Soft. Bowel sounds normal. No guarding, rigidity, tenderness, or distention. Extremities: No leg edema. Discharge Medications And Instructions: 1. Continue all prior home medications. 2. Take Eliquis 5 mg 2 times a day for 1 month. 3. Prednisone 10 mg, patient to take 2 tablets by mouth 2 times a day for 4 days, then 2 tablets by mouth daily for 4 days, then 1 tablet by mouth daily for 4 days, then 1/2 tablet by mouth daily for 4 days, then stop; take it with food. 4. Azithromycin 250 mg p.o. daily for 1 week, take it with food. 5. Follow up with Dr. Martinez on Monday, which is 12/20/2020. Laboratory Data: Upon admission, white count 6.1, hemoglobin 13.5, platelets 146. Today, white count 9.5, hemoglobin 13, platelets 175. Today, sodium 144, potassium 4, chloride 112, bicarb 28, BUN 28, creatinine 0.85, glucose 157. Liver function tests; AST 39, ALT 90, alkaline phosphatase 35. CRP 11.4. Upon admission, CRP was 63.10. Hospital Course: The 75-year-old pleasant male patient, came into emergency room with complaints of shortness of breath. Please see dictated H and P for more information. The patient was evaluated in the ER. He was admitted to our hospital with COVID-19 infection and COVID-19 pneumonia. Patient also had hypoxia requiring supplemental oxygen. He was started on IV steroid, IV antibiotics. Home medications were continued per order and he was started on anticoagulation therapy with Eliquis. Overall, his condition improved. He was on 2 L nasal cannula oxygen, and overall, he feels better. Chest x-ray has shown improvement. Today, his oxygen was discontinued and he maintained oxygen saturation 92% to 93% on room air. Overall, he feels better and was discharged to go home in stable condition with above-mentioned medications and instructions. Final Diagnoses: 1. Coronavirus disease 2019 infection. 2. Coronavirus disease 2019 pneumonia. 3. Acute respiratory failure with hypoxia. 4. Anemia, unspecified. 5. Hypertension. 6. Mixed hyperlipidemia. 7. Colon cancer. 8. Gastroesophageal reflux disease. 9. Diverticulosis. FILIPE/MODL Voice ID: [id number] Report ID: [id number] MTDD
== END 2020-12-17 13:51 | disposition home or self-care (01) | DRG 177 ==
LOC: ER 08:44 → ERHOLD 11:37
PROVIDERS: ADMIT Internal Medicine; ATTEND Internal Medicine
DX: U07.1 COVID-19 (principal); J12.82 Pneumonia due to coronavirus disease 2019; J96.01 Acute respiratory failure with hypoxia; D64.9 Anemia, unspecified; I10 Essential (primary) hypertension; E78.2 Mixed hyperlipidemia; K21.9 Gastro-esophageal reflux disease without esophagitis; K57.90 Diverticulosis of intestine, part unspecified, without perforation or abscess without bleeding; N40.0 Benign prostatic hyperplasia without lower urinary tract symptoms; Z85.038 Personal history of other malignant neoplasm of large intestine; Z88.0 Allergy status to penicillin; Z88.2 Allergy status to sulfonamides; Z90.49 Acquired absence of other specified parts of digestive tract
CPT/HCPCS: 36415; 71045; 80048; 80053; 80076; 82728; 83735; 83880; 84484; 85025; 85610; 86140; 93005; 94760; 96361; 96365; 96372; 96375; 99285; C9113; J0456; J1650; J2920; J2930; J7030; J7050